=== PATIENT | male | born 1960 | race African-American/Black ===

== ENCOUNTER 2016-05-03 08:43 | Inpatient (IN) | payer MEDICAID ==
[~2016-05-03] VITALS: Ht 165.1 cm; Wt 148.0 kg
[~2016-05-03 08:43] MED LIST: HYDR-1421; TRIA37.561; [UNRECOGNIZED DRUG - OTHER]
[2016-05-03] MEDS ORDERED: SODIUM CHLORIDE 0.9% 500 ML IVB ONE (09:29)
[2016-05-03] MEDS ORDERED: ONDANSETRON HCL 4 MG/2 ML VIAL IV ONE (09:30)
[2016-05-03] MEDS ORDERED: HYDROmorphone HCL 2 MG/ML VL IV ONE ×2 (09:30→14:45)
[2016-05-03] MEDS ORDERED: PANTOPRAZOLE SODIUM 40 MG/10 ML VIAL IV ONE (09:30)
[2016-05-03 09:36] LABS: Hematocrit 48.8 % (41.0-53.0); Hemoglobin 16.7 g/dL (13.5-17.5); Mean Corpuscular Hemoglobin 28.2 pg (28.0-32.0); Mean Corpuscular Hgb Conc. 34.3 g/dL (32.0-36.0); Mean Corpuscular Volume 82.4 fL (80.0-100.0); Mean Platelet Volume 7.2 fL (7.4-10.4); Platelet Count (auto) 191 10^3/uL (140-450); Red Cell Distribution Width 16.2 % (11.6-16.0); SUSPECT VIEW TRANSMISSION; White Blood Cell 4.7 10^3/uL (4.4-10.8)
[2016-05-03 09:54] LABS: Metamyelocytes % 0; Myelocytes % 0; Promyelocytes % 0; Reactive Lymphocytes 0
[2016-05-03 09:55] LABS: Albumin 3.8 g/dL (3.4-5.0); BUN/Creatinine Ratio 5.8; Bilirubin, Total 0.4 mg/dL (0.2-1.0); Calcium 8.8 mg/dL (8.5-10.1); Magnesium 2.3 mg/dL (1.6-2.6); Potassium 3.7 mmol/L (3.5-5.1); Total Protein 7.9 g/dL (6.4-8.2)
[2016-05-03 10:12] LABS: Amylase 61 U/L (25-115)
[2016-05-03 10:56] LABS: Platelet Estimate Adequate
[2016-05-03 10:57] LABS: RBC Morphology Normal
[2016-05-03 11:29] LABS: Urine Bilirubin Negative (Negative); Urine Blood Negative /uL (Negative); Urine Color Yellow (Yellow); Urine Glucose Normal (Normal); Urine Ketone Negative (Negative); Urine Nitrite Negative (Negative); Urine RBC 1 /hpf (0 - 3); Urine Sperm PRESENT /hpf (None Seen); Urine Squamous Epithelial Cell FEW /hpf (<5); Urine Urobilinogen Normal (Negative)
[2016-05-03] MEDS ORDERED: HYDROcodone-ACET 10/325MG TAB PO PRN (15:00)
[2016-05-03] MEDS ORDERED: CARISOPRODOL 350 MG TAB PO PRN (15:00)
[2016-05-03] MEDS ORDERED: ACETAMINOPHEN 325 MG TAB PO PRN (15:15)
[2016-05-03] MEDS ORDERED: ONDANSETRON HCL 4 MG/2 ML VIAL IV PRN (15:15)
[2016-05-03] MEDS ORDERED: NITROGLYCERIN 0.4 MG SL TAB SL PRN (15:15)
[2016-05-03] MEDS ORDERED: TEMAZEPAM 15 MG CAP PO PRN (15:15)
[2016-05-03] MEDS ORDERED: LORazepam 2MG/ML-1ML VIAL IV PRN (15:15)
[2016-05-03] MEDS ORDERED: DOCUSATE SOD 100 MG CAP PO PRN (15:15)
[2016-05-03] MEDS: SODIUM CHLORIDE 0.9% 1,000 ML IV SCH (15:17)
[2016-05-03] MEDS: PHENobarbital 32.4 MG TAB PO SCH ×2 (15:30→21:31)
[2016-05-03] MEDS: FAMOTIDINE 20 MG TAB PO SCH ×2 (15:30→21:31)
[2016-05-03] MEDS: LISINOPRIL 20 MG TAB PO SCH (15:30)
[2016-05-03 17:00] VITALS: BP 177/85
[2016-05-03] MEDS: PHENYTOIN SODIUM 100 MG CAP PO SCH ×2 (17:35→21:31)
[2016-05-03 18:04] VITALS: BP 162/85
[2016-05-03] MEDS: HYDROmorphone HCL 2 MG/ML VL IV PRN ×2 (18:54→23:21)
[2016-05-03] MEDS ORDERED: cloNIDine HCL 0.1 MG TAB PO PRN (19:15)
[2016-05-03] MEDS: AMITRIPTYLINE HCL 10 MG TAB PO SCH (21:31)
[2016-05-03] MEDS: ATORVASTATIN 20 MG TAB PO SCH (21:32)
[2016-05-03 21:58] VITALS: BP 153/79
[2016-05-04] MEDS: HYDROmorphone HCL 2 MG/ML VL IV PRN ×5 (03:45→21:37)
[2016-05-04 04:55] VITALS: BP 141/80
[2016-05-04] MEDS: PHENYTOIN SODIUM 100 MG CAP PO SCH ×4 (06:02→21:35)
[2016-05-04] MEDS: PHENobarbital 32.4 MG TAB PO SCH ×3 (06:02→21:36)
[2016-05-04 06:15] LABS: Albumin 3.8 g/dL (3.4-5.0); BUN/Creatinine Ratio 6.5; Calcium 8.1 mg/dL (8.5-10.1); Potassium 3.6 mmol/L (3.5-5.1)
[2016-05-04 06:18] LABS: Bilirubin, Total 0.5 mg/dL (0.2-1.0); Total Protein 7.5 g/dL (6.4-8.2)
[2016-05-04 06:30] LABS: Basophils # (auto) 0 uL; Basophils % (auto) 0.2 % (0.0-2.0); Eosinophils # (auto) 0.1 uL; Eosinophils % (auto) 2.1 % (0.0-7.0); Hematocrit 47.9 % (41.0-53.0); Hemoglobin 15.7 g/dL (13.5-17.5); Lymphocytes # (auto) 2.3 uL; Lymphocytes % (auto) 41.9 % (10.0-50.0); Mean Corpuscular Hemoglobin 27.7 pg (28.0-32.0); Mean Corpuscular Hgb Conc. 32.8 g/dL (32.0-36.0); Mean Corpuscular Volume 84.4 fL (80.0-100.0); Mean Platelet Volume 7.5 fL (7.4-10.4); Monocytes # (auto) 0.4 uL; Monocytes % (auto) 6.4 % (0.0-12.0); Neutrophils # (auto) 2.7 uL; Neutrophils % (auto) 49.4 % (37.0-80.0); Platelet Count (auto) 201 10^3/uL (140-450); Red Cell Distribution Width 16.4 % (11.6-16.0); White Blood Cell 5.6 10^3/uL (4.4-10.8)
[2016-05-04] MEDS: SODIUM CHLORIDE 0.9% 1,000 ML IV SCH (07:51)
[2016-05-04 09:00] VITALS: BP 183/100
[2016-05-04] MEDS: MULTIPLE VITAMIN TAB PO SCH (09:43)
[2016-05-04] MEDS: FAMOTIDINE 20 MG TAB PO SCH (09:43)
[2016-05-04] MEDS: LISINOPRIL 20 MG TAB PO SCH (09:44)
[2016-05-04] MEDS ORDERED: amLODIPine BESYLATE 5 MG TAB PO ONE (12:45)
[2016-05-04 13:00] VITALS: BP 160/97
[2016-05-04] MEDS ORDERED: PANTOPRAZOLE 40 MG TAB PO ONE (13:00)
[2016-05-04 14:22] LABS: INR 1.06 (0.9-1.15); Partial Thromboplastin Time 27.4 sec (22.64-33.71); Prothrombin Time 10.9 sec (9.37-12.3)
[2016-05-04 17:00] VITALS: BP 148/89
[2016-05-04] MEDS: AMITRIPTYLINE HCL 10 MG TAB PO SCH (21:36)
[2016-05-04] MEDS: PANTOPRAZOLE 40 MG TAB PO SCH (21:36)
[2016-05-04] MEDS: ATORVASTATIN 20 MG TAB PO SCH (21:36)
[2016-05-04 22:00] VITALS: BP 169/85
[2016-05-05] MEDS: SODIUM CHLORIDE 0.9% 1,000 ML IV SCH ×2 (02:53→17:39)
[2016-05-05] MEDS: HYDROmorphone HCL 2 MG/ML VL IV PRN ×4 (04:23→22:35)
[2016-05-05 05:14] VITALS: BP 149/87
[2016-05-05] MEDS: PHENYTOIN SODIUM 100 MG CAP PO SCH ×4 (06:19→18:39)
[2016-05-05] MEDS: PHENobarbital 32.4 MG TAB PO SCH ×3 (06:19→22:17)
[2016-05-05] MEDS ORDERED: SODIUM CHLORIDE LOCK 10 ML ONE (08:26)
[2016-05-05] MEDS ORDERED: LIDOCAINE VISCOUS 2% 15ML UD ONE (08:26)
[2016-05-05] MEDS ORDERED: diphenhdrAMINE HCL 50 MG/1 ML VL ONE (08:27)
[2016-05-05 08:56] VITALS: BP 147/114
[2016-05-05] MEDS: PANTOPRAZOLE 40 MG TAB PO SCH ×2 (09:33→22:17)
[2016-05-05] MEDS: MULTIPLE VITAMIN TAB PO SCH (09:33)
[2016-05-05] MEDS: LISINOPRIL 20 MG TAB PO SCH (09:34)
[2016-05-05] MEDS: amLODIPine BESYLATE 5 MG TAB PO SCH (09:35)
[2016-05-05] MEDS: fentaNYL CITRATE 100 MCG/2 ML VL ONE ×2 (12:49→12:53)
[2016-05-05] MEDS: MIDAZOLAM HCL 5 MG/ML-1ML VIAL ONE ×2 (12:49→12:53)
[2016-05-05 14:30] VITALS: BP 148/84
[2016-05-05 17:00] VITALS: BP 128/76
[2016-05-05 22:00] VITALS: BP 131/76
[2016-05-05] MEDS: ATORVASTATIN 20 MG TAB PO SCH (22:16)
[2016-05-05] MEDS: AMITRIPTYLINE HCL 10 MG TAB PO SCH (22:17)
[2016-05-06] MEDS: HYDROmorphone HCL 2 MG/ML VL IV PRN ×2 (04:15→08:19)
[2016-05-06 05:19] VITALS: BP 136/79
[2016-05-06] MEDS: PHENobarbital 32.4 MG TAB PO SCH (06:29)
[2016-05-06] MEDS: PHENYTOIN SODIUM 100 MG CAP PO SCH ×2 (06:39→11:57)
[2016-05-06 08:00] VITALS: BP 123/90
[2016-05-06 09:07] VITALS: BP 123/90
[2016-05-06] MEDS: SODIUM CHLORIDE 0.9% 1,000 ML IV SCH (09:39)
[2016-05-06] MEDS: MULTIPLE VITAMIN TAB PO SCH (09:39)
[2016-05-06] MEDS: PANTOPRAZOLE 40 MG TAB PO SCH (09:39)
[2016-05-06] MEDS: amLODIPine BESYLATE 5 MG TAB PO SCH (09:40)
[2016-05-06] MEDS: LISINOPRIL 20 MG TAB PO SCH (09:40)
[2016-05-06] MEDS ORDERED: PANT40T PO (11:40)
[2016-05-06 13:01] VITALS: BP 123/90
== END 2016-05-06 13:33 | disposition home or self-care (01) | DRG 282 ==
LOC: ER 08:43 → TELE 08:44 → TELE-EAST 17:14
PROVIDERS: ADMIT Internal Medicine; ATTEND Internal Medicine
PROC: 0DB68ZX Excision of Stomach, Via Natural or Artificial Opening Endoscopic, Diagnostic (ICD-10-PCS; principal; 2016-05-05 12:44)
DX: K85.90 Acute pancreatitis without necrosis or infection, unspecified (principal); Z68.43 Body mass index [BMI] 50.0-59.9, adult; I12.9 Hypertensive chronic kidney disease with stage 1 through stage 4 chronic kidney disease, or unspecified chronic kidney disease; E66.01 Morbid (severe) obesity due to excess calories; G89.29 Other chronic pain; G47.00 Insomnia, unspecified; K29.00 Acute gastritis without bleeding; E78.5 Hyperlipidemia, unspecified; K86.1 Other chronic pancreatitis; K42.9 Umbilical hernia without obstruction or gangrene; N18.2 Chronic kidney disease, stage 2 (mild); G40.909 Epilepsy, unspecified, not intractable, without status epilepticus; Z87.19 Personal history of other diseases of the digestive system; Z98.890 Other specified postprocedural states; Z88.5 Allergy status to narcotic agent
CPT/HCPCS: 36415; 43239; 71010; 74176; 76705; 80053; 80320; 81001; 82150; 83690; 83735; 85007; 85025; 85027; 85610; 85730; 93005; 94761; 96361; 96374; 96375; 96376; C9113; J2250; J2405